=== PATIENT | female | born 1960 ===

== ENCOUNTER 2025-01-27 10:50 | Emergency (ER) | payer MEDICARE, MEDICAID, SELFPAY ==
[2025-01-27] VITALS (7 sets, daily range): BP systolic 125–159; BP diastolic 60–83; PULSE 63–79; RESP 15–18; TEMP 36.7–37.1; O2SAT 98–100; BMI 36.5
--- NOTE | ~2025-01-27 | XR_ITS ---
CLINICAL HISTORY: sob 1 view chest x-ray Comparison: None Findings: No consolidation or effusion. Heart size is normal. No acute fracture. IMPRESSION: 1. No acute findings. This document has been electronically signed by: Rico Guillaume MD on 01/27/2025 11:59:30
--- NOTE | 2025-01-27 11:11 | ECG_ITS ---
Test Reason : cp Blood Pressure : */* mmHG Vent. Rate : 72 BPM Atrial Rate : 72 BPM P-R Int : 180 ms QRS Dur : 126 ms QT Int : 452 ms P-R-T Axes : 45 -1 50 degrees QTcB Int : 494 ms Normal sinus rhythm Left bundle branch block Abnormal ECG No previous ECGs available Referred By: Elizabeth Johnson Electronically Signed By: RUDDY FERREIRA MD
--- NOTE | 2025-01-27 11:14 | ED.GENADULT ---
HPI - General Adult General Chief complaint: General Medical Stated complaint: Alejandra coleman eval request,15 lb weight gain x1wk Time Seen by Provider: 01/27/25 10:56 History of Present Illness HPI narrative: patient is a 64-year-old female from [facility] on a section 21. Presented today with having an episode Of 15 lb weight gain. There is no fever no chills. There is no shortness of breath. Has a history of congestive heart failure. There was also question of bradycardia but EMS reported a heart rate of 70s blood pressure 130/80. Related Data Allergies Allergy/AdvReac Type Severity Reaction Status Date / Time haloperidol [From Haldol] AdvReac Unknown Verified 01/27/25 11:08 Review of Systems Review of Systems: No fever no chills no chest pain patient unable to give detailed review of systems secondary to psychiatric disorder PMFSH Past Medical History Attestation statement: The following information was validated with the patient. Social History Social History Unable to assess alcohol history related to: Unknown Smoked in Last 30 Days: No Use of substances other than those prescribed or required for medical reasons: Unknown Advance Directives: No Advance Directives Information Provided: No Do you have a plan to hurt others: No Plan Physical Exam ED Vital Signs: Vital Signs - 24 hr 01/27/25 11:00 01/27/25 11:05 01/27/25 12:00 Temperature 98.7 F 98.1 F 98.4 F Pulse Rate 71 73 63 Respiratory Rate 17 15 17 Blood Pressure 135/70 135/70 138/70 Pulse Oximetry 98 100 99 Oxygen Delivery Method Room Air Room Air Room Air 01/27/25 13:18 01/27/25 13:56 01/27/25 14:00 Temperature 98.4 F 98.1 F 98.6 F Pulse Rate 70 79 63 Respiratory Rate 15 17 18 Blood Pressure 159/78 H 139/78 125/60 Pulse Oximetry 100 99 99 Oxygen Delivery Method Room Air Room Air Room Air BMI result Body Mass Index 36.5 Appearance: Alert. No acute distress. Eyes: Pupils equal, round and reactive to light. ENT: Pharynx normal. Neck: Normal inspection. Neck supple. No lymph nodes noted. No crepitus CVS: Normal heart rate and rhythm. Pulses normal. Normal S1 and S2 Respiratory: No respiratory distress. Breath sounds normal. No Wheezing. No rales Abdomen: Soft and nontender. No rigidity. No distention. good BS x4 Skin: Skin warm and dry. Normal skin color. Normal skin turgor. Extremities: 2+lower extremity edema. Neurovascular intact to all extremities. No Lacerations. No Rash Neuro: Oriented X 1 No motor deficit. No sensory deficit. Moving all extermities. No slurred speech Medications Administered Discontinued Medications Generic Name Dose Route Start Last Admin Trade Name Pricilla PRN Reason Stop Dose Admin Diazepam 2.5 mg 01/27/25 14:22 01/27/25 14:29 Diazepam 10 Mg/2 Ml Cartridge IVPUSH 01/27/25 14:23 2.5 mg STAT STA Administration Medical Decision Making Medical Decision Making [facility] Narrative: My interpretation patient's EKG heart rate is 70 there is a left bundle branch block. There is no old EKG to compare. My interpretation patient's chest x-ray was grossly negative for CHF,pneumonia pneumothorax. Patient's white count is 3.8. No significant shift. Patient's electrolytes showed BNP that is mildly elevated question chronicity. A patient's troponin is less than 2.7 no signs of ACS urine showed no signs of infection. Monitor in the ED pulse has been in the 60s and 70s range. Appears sinus on the monitor blood pressure has been stable. We will get a 2nd troponin. Unlikely ACS. in light of patient having a BUN and creatinine of 20 and 1. Reluctant to adjust patient's Lasix. Will have patient follow-up on an outpatient basis. Differential Diagnosis Differential Diagnoses: The differential diagnosis associated with the presentation includes Admission/Observation Consideration of admission/observation: Escalation of care including admission/observation considered Lab Data [facility] Lab Attestation statement: I reviewed the patient's lab results. 01/27/25 11:28 01/27/25 11:28 Labs: Lab Results 01/27/25 01/27/25 01/27/25 Range/Units 11:28 12:10 14:27 WBC 3.8 L (4.8-10.8) X10*3/uL RBC 3.58 L (4.20-5.50) X10*6/uL Hgb 10.3 L (12.0-16.0) g/dl Hct 33.4 L (37.0-47.0) % MCV 93.3 (80.0-98.0) fL MCH 28.8 (27.0-33.0) pg MCHC 30.8 L (31.0-35.0) g/dl RDW 12.9 (11.0-16.0) % Plt Count 206 (160-400) X10*3/uL MPV 9.6 (9.4-12.3) fL Immature Gran % (Auto) 0.8 H (0.0-0.4) % Neut % (Auto) 54.4 (45-73) % Lymph % (Auto) 31.9 (20-40) % [place] % (Auto) 10.2 (2-11) % Eos % (Auto) 2.4 (0-4) % Baso % (Auto) 0.3 (0-2) % Lymph # (Auto) 1.2 (1.2-4.9) X10*3/uL [place] # (Auto) 0.4 (0.1-1.2) X10*3/uL Eos # (Auto) 0.1 (0.0-0.4) X10*3/uL Baso # (Auto) 0.0 (0.0-0.2) X10*3/uL Abs Immat Gran (auto) 0.03 (0.00-0.03) X10*3/uL Absolute Neuts (auto) 2.1 (2.0-8.3) x10*3/uL Absolute Nucleated RBC 0.000 (0.0-0.012) X10*3/uL Nucleated RBC % (auto) 0.0 (0.0-0.2) /100WBC Sodium 140 (135-145) mmol/L Potassium 4.4 (3.3-5.1) mmol/L Chloride 106 (96-108) mmol/L Carbon Dioxide 27 (22-29) mmol/L Anion Gap 11 L (12-20) BUN 20 H (9-16) mg/dL Creatinine 0.76 (0.5-1.4) mg/dL Estim Creat Clear Calc 88.1 Estimated GFR > 60 Random Glucose 122 H (60-115) mg/dL Calcium 9.0 (8.4-10.2) mg/dL Total Bilirubin 0.3 (0.0-1.0) mg/dL Direct Bilirubin 0.1 (0.0-0.5) mg/dL AST 17 (5-31) U/L ALT 14 (0-31) U/L Alkaline Phosphatase 81 (39-117) U/L Troponin I High Sens < 2.7 < 2.7 (<3.5-17.0) ng/L B-Natriuretic Peptide 245 H (<100) pg/mL Total Protein 6.6 (6.5-8.0) g/dL Albumin 3.9 (3.5-5.0) g/dL Lipase 14 (8-78) U/L Urine Color Yellow Urine Appearance Clear Urine pH 7.5 (5.0-9.0) Ur Specific [place] 1.010 (1.005-1.025) Urine Protein Negative (Neg-Trace) mg/dL Urine Glucose (UA) Negative (Negative) mg/dL Urine Ketones Negative (Negative) mg/dL Urine Blood Negative (Negative) Urine Nitrite Negative (Negative) Ur Leukocyte Esterase Negative (Negative) Urine RBC 0-2 (0-2) /HPF Urine WBC 0-5 (0-5) /HPF Ur Squamous Epith Cells 0-2 (0-2) /HPF Urine Bacteria None Seen (None Seen) Hyaline Casts 0-2 (0-2) /LPF Independent Interpretation I performed an independent interpretation of an: EKG ( sinus heart rate is 80 with a left bundle branch block) and Plain X-Ray ( chest x-ray grossly negative for infiltrate) Radiology Impression Discussion of test interpretation with radiology: I have reviewed the radiologist's reading. Independent Historian Clinical information obtained from an independent historian. History obtained from or confirmed by: EMS External Record Review External record reviewed: Outpatient record ( from [facility]) Chronic Conditions psychiatric disorder possible history of congestive heart failure Discharge Plan Discharge Clinical Impression: Leg swelling Patient Disposition: Home, Self-Care Instructions: Heart Failure (DC) Print Language: Pashto
--- NOTE | 2025-01-27 11:27 | PC.NURSE ---
Pt cooperative with care on arrival; pt singing loudly, no aggressive behaviors observed; unable to answer most questions appropriately; 2+ nadia. LE pitting edema and nadia. JVD; pt 100% RA; no SOB noted; SR with LBBB per EKG; LS dim bibasilar; sitter in place for pt safety
[2025-01-27 11:35] LABS: MANUAL DIFF FLAG NO
[2025-01-27 11:36] LABS: Basophils Percent Auto 0.3 % (0-2); Eosinophils Absolute Auto 0.1 X10*3/uL (0.0-0.4); Eosinophils Percent Auto 2.4 % (0-4); Hematocrit 33.4 % (37.0-47.0); Hemoglobin 10.3 g/dl (12.0-16.0); Imm Gran Abs Auto 0.03 X10*3/uL (0.00-0.03); Imm Gran Pct Auto 0.8 % (0.0-0.4); Lymphocytes Absolute Auto 1.2 X10*3/uL (1.2-4.9); Lymphocytes Percent Auto 31.9 % (20-40); Mean Corpuscular HGB Conc 30.8 g/dl (31.0-35.0); Mean Corpuscular Hemoglobin 28.8 pg (27.0-33.0); Mean Corpuscular Volume 93.3 fL (80.0-98.0); Mean Platelet Volume 9.6 fL (9.4-12.3); Monocytes Absolute Auto 0.4 X10*3/uL (0.1-1.2); Monocytes Percent Auto 10.2 % (2-11); Neutrophils Absolute Auto 2.1 x10*3/uL (2.0-8.3); Neutrophils Percent Auto 54.4 % (45-73); Platelet Count 206 X10*3/uL (160-400); Red Blood Count 3.58 X10*6/uL (4.20-5.50); Red Cell Distribution Width 12.9 % (11.0-16.0); White Blood Count 3.8 X10*3/uL (4.8-10.8)
[2025-01-27 11:53] LABS: Alanine Aminotransferase 14 U/L (0-31); Albumin Level 3.9 g/dL (3.5-5.0); Alkaline Phosphatase 81 U/L (39-117); Anion Gap 11 (12-20); Aspartate Amino Transferase 17 U/L (5-31); Bilirubin Direct 0.1 mg/dL (0.0-0.5); Bilirubin Total 0.3 mg/dL (0.0-1.0); Blood Urea Nitrogen 20 mg/dL (9-16); Carbon Dioxide 27 mmol/L (22-29); Chloride 106 mmol/L (96-108); Creatinine Clr Calc Pharmacy 88.1; Estimated Glomerular Filt Rate > 60; Glucose Random 122 mg/dL (60-115); Lipase 14 U/L (8-78); Potassium 4.4 mmol/L (3.3-5.1); Sodium 140 mmol/L (135-145); Total Protein 6.6 g/dL (6.5-8.0)
[2025-01-27 11:57] LABS: B Type Natriuretic Peptide 245 pg/mL (<100)
[2025-01-27 12:01] LABS: Troponin-I High Sensitivity < 2.7 ng/L (<3.5-17.0)
[2025-01-27 12:18] LABS: Appearance Urine Clear; Color Urine Yellow; Glucose Urine UA Negative (Negative); Leukocyte Esterase Urine Negative (Negative); Nitrite Urine Negative (Negative); PH 7.5 (5.0-9.0); Urine Blood Negative (Negative); Urine Ketones Negative (Negative); Urine Protein Negative (Neg-Trace)
[2025-01-27 12:21] LABS: Bacteria Urine None Seen (None Seen); Hyaline Casts Urine 0-2 /LPF (0-2); RBC Urine 0-2 /HPF (0-2); Squamous Epithelial Cell Urine 0-2 /HPF (0-2); WBC Urine 0-5 /HPF (0-5)
[2025-01-27] MEDS: diazePAM 10 MG/2 ML CARTRIDGE 2.5 MG IVPUSH (14:29)
--- NOTE | 2025-01-27 15:07 | PC.NURSE ---
Pt getting increasingly agitated in room, yelling nonsensical sentences; pt medicated per orders; pt resting quietly in room, awake and eating lunch; vs remain stable throughout visit; SR 70's
[2025-01-27 15:09] LABS: Troponin-I High Sensitivity < 2.7 ng/L (<3.5-17.0)
--- NOTE | 2025-01-27 16:06 | MHC.EDTECH ---
11:00?Patient arrival to ED. Patient is calm and cooperative. -CMS, edge baster 11:15?Patient is calm and cooperative. -CMS, edge baster 11:30?Patient is calm and cooperative. -CMS, edge baster 11:45?Patient is calm and cooperative. -CMS, edge baster 12:00?Patient is calm and cooperative. -CMS, edge baster 12:15?Used restroom with assistance. Patient is calm and cooperative. -[facility], edge baster 12:30?Patient is calm and cooperative. -CMS, edge baster 12:45?Patient is calm and cooperative. -CMS, ED Tech13:00?Patient is sleeping. Patient is calm and cooperative. -CMS, edge baster 13:15? Patient is eating Jello, Pudding, and SF Jacqueline Nieves. Patient is calm and cooperative. -[facility], edge baster 13:30?Patient used the restroom with assistance. Patient is calm and cooperative. -[facility], edge baster 13:45??Ice water provided. Patient is calm and cooperative. -[facility], edge baster 14:00?Patient is agitated and uncooperative. Patient does not want to be here. -[facility], edge baster 14:15?Patient is calm and cooperative. -CMS, edge baster 14:30?Patient is calm and cooperative. -CMS, edge baster 14:45?Patient is calm and cooperative. -CMS, edge baster 15:00?Patient is calm and cooperative. -CMS, edge baster 15:15?Patient is sleeping. Patient is calm and cooperative. -CMS, edge baster 15:30?Patient is sleeping. Patient is calm and cooperative. -[facility], edge baster 15:45?Patient is requesting lunch. Patient is calm and cooperative. -CMS, edge baster 16:00?Patient is requesting lunch. Patient is agitated and uncooperative. -CMS, edge baster? 16:15 DC Back
== END 2025-01-27 16:05 | disposition home or self-care (01) ==
PROVIDERS: Emergency Provider Emergency Medicine Emergency Medical Services
DX: R60.0 Localized edema (principal); R07.89 Other chest pain; I44.7 Left bundle-branch block, unspecified; Z79.899 Other long term (current) drug therapy
CPT/HCPCS: 36415; 71045; 80048; 80076; 81001; 83690; 83880; 84484; 85025; 93005; 96374; 99284; J3360

== ENCOUNTER → 2025-01-27 11:11 | Outpatient (BNV) | payer MEDICARE, MEDICAID, SELFPAY | PROVIDERS: Emergency Provider Emergency Medicine Emergency Medical Services; Visit Provider Internal Medicine Cardiovascular Disease | DX: R94.31 Abnormal electrocardiogram [ECG] [EKG] (principal) | CPT/HCPCS: 93010 ==

== ENCOUNTER → 2025-01-27 11:11 | Outpatient (BNV) | payer MEDICARE, MEDICAID, SELFPAY | PROVIDERS: Emergency Provider Emergency Medicine Emergency Medical Services; Visit Provider Radiology Diagnostic Radiology | DX: R06.02 Shortness of breath (principal) | CPT/HCPCS: 71045 ==